=== PATIENT | male | born 1965 | race Caucasian/White ===

== ENCOUNTER 2022-08-05 11:09 | Day surgery (SDC) | payer OTHER, SELFPAY ==
--- NOTE | 2022-08-05 08:44 | W.PM.DSUDISC ---
Discharge Plan Disposition Patient Disposition: [facility] Condition: Good Discharge Details Reason For Visit: Screening colonoscopy Attending Provider: Luis Fernando Leiva Primary Care Provider: None,None Home Meds and New Rx's Prescriptions: Continued propranolol 10 mg tablet 10 mg PO BID pantoprazole 40 mg tablet,delayed release (DR/EC) 40 mg PO DAILY naproxen sodium 220 mg Tablet 220 mg PO DAILY PRN Discharge Instructions Instructions: Colorectal Polyps (DC) Additional Instructions: 1. If tolerated, consume a soft, low fiber diet for 1-2 days. 2[address] Do not drive, drink alcohol, operate machinery, make critical decisions, or do activities that require coordination or balance for 24 hours. 3. Because air was put into your colon during the procedure, expelling air from your rectum (passing gas or farting) is normal. 4. You may not have a bowel movement for 1-3 days because of the colonoscopy prep. This is normal. 5. Go directly to the emergency room if you notice any of the following: Develop chills (warm to touch), or if you have a thermometer and your temperature is above 101 Difficulty breathing or difficultly swallowing Persistent vomiting Severe abdominal pain, other than gas cramps Severe chest pain Black, tarry stools Any bleeding ? exceeding one tablespoon 6. Call your physician if the site where your intravenous was started becomes red, swollen, painful, and warm to touch. 7. Your physician has reviewed your pre-procedure medications. Please continue to take those medications as previously ordered. You will be given specific information/education regarding any changes to your medications before leaving. Activity:: Activity as Tolerated Diet:: As Tolerated Discharge Orders Discharge Orders: Discharge Order (Routine); Ordered 08/05/22 Ordered By: Luis Fernando Leiva DS: Diagnosis Discharge Diagnosis (1) Screening for colon cancer: Status: Acute Asessment and Plan: My office will contact the correctional facility with results of the biospy
--- NOTE | 2022-08-05 08:46 | COLE_ITS ---
Colonoscopy Report Date of procedure: 08/05/22 Pre-op diagnosis general: screening colonoscopy Post-op diagnosis procedure note: other (diverticulosis, colon polyp, rectal polyp) Procedure: Screening colonoscopy Surgeon: Luis Fernando Leiva Anesthesia Type: General:No Airway Estimated blood loss (mL): 10 Pathology: other (Colon polyp at 55 cm, rectal polyp at 15 cm) Complications: None Disposition: same day Prep: Miralax/Dulcolax Procedure Start Time: 14:07 Procedure End Time: 14:28 Retraction Time: 17 Findings: Polyp at 55 cm, polyp at 15 cm Procedure Description: After the induction of monitored anesthetic care, and with the patient in left lateral decubitus position, I began by performing an external anorectal exam.? Perineum and skin were normal, as was the anal verge.? There was no evidence of external hemorrhoids.? Next, I performed a digital rectal exam.? I did not appreciate any abnormal findings.? Next, I advanced a colonoscope into the rectal vault.? I performed retroflexion.? I did not see signs of pathologic internal hemorrhoids.? Using insufflation, I then advanced the colonoscope beyond the rectal folds and into the sigmoid colon before advancing towards the cecum.? The quality of the prep was excellent.? The scope was noted to be in the cecum by identification of the ileocecal valve and appendiceal orifice.? I then began withdrawing the colonoscope using repeated irrigation as necessary for full evaluation of the colonic mucosa. Around 55 cm from the anal verge I identified a 0.5 cm polyp. ?It appeared sessile in character. ?I was able to remove this with a cold forcep. ?I examined the site, and there was minimal bleeding. ?Once this was completed, I continued to withdraw the scope and examin e the remainder of the colonic mucosa.?Once the scope was withdrawn to the level of the rectum, great care was taken to examine portions of the rectal folds.?Around 15 cm from the anal verge I identified a 1.25 centimeter polyp. ?It appeared pedunculated in character. ?I was able to remove this with a hot snare. ?I examined the site, and there was minimal bleeding. ?Once this was completed, I continued to withdraw the scope and examine the remainder of the colonic mucosa. Finally, the scope was withdrawn and the patient was brought to the same-day surgery recovery unit as the anesthetic wore off. ?The findings and instructions were shared with the patient prior to discharge.
[2022-08-05 11:32] VITALS: BP 136/94; PULSE 77; RESP 18; TEMP 36.1; O2SAT 96
[2022-08-05] MEDS: Lactated Ringers 1,000 ML 80 ML IV (12:00)
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
[2022-08-05 13:35] VITALS: BMI 30.7
--- NOTE | 2022-08-05 13:45 | W.PM.HP.N ---
Date of service: 08/05/22 Time of Service: 13:45 Assessment and Plan Assessment and plan (1) Screening for colon cancer: Status: Acute Assessment and plan: Okay to proceed with screening colonoscopy today. History of Present Illness Narrative: 56 y/o male with history of GERD presents for colonoscopy screening pre-op.? He denies a family history of colon cancer. He denies any changes in bowel habits including bloody or black tarry stools, abdominal pain, diarrhea or constipation. Patient describes that he does have concerns regarding the sensation of sitting on a ball, inside his rectum. He states this isn't painful, but is uncomfortable and becomes more so with prolonged sitting.? He states he has been having this sensation since July of 2021.? Rectal exam performed by the correctional facility physician was unremarkable.? He states that he has noted having a wet, gel like substance when wiping, that has a foul odor. He denies constitutional symptoms. Denies use of marijuana or any other recreational or illegal drugs PFSH All Active Problems (Updated 08/05/22 @ 13:46 by Luis Fernando Leiva MD) Screening for colon cancer (Acute) COVID (Acute ~11/11/21) Medical History Alcohol dependence GERD (gastroesophageal reflux disease) Headache Surgical History Hx of foot surgery R foot, nail gun Social History Smoking/Tobacco Use Status: Former Tobacco Use Quit Date: 10/30/18 Smoking risk assessment performed?: Yes Alcohol Intake: former Substance use type: does not use Details: alcohol : 3 years, marijuana: 3 years Additional Social history: [facility] Meds Allergies and Home Medications Allergies Allergy/AdvReac Type Severity Reaction Status Date / Time acetaminophen [From Tylenol] Allergy Intermediate hives Verified 08/05/22 11:37 Home Medications Medication Instructions Recorded Confirmed Type pantoprazole 40 mg tablet,delayed 40 mg PO DAILY 12/16/21 08/05/22 History release propranolol 10 mg tablet 10 mg PO BID 12/16/21 08/05/22 History naproxen sodium 220 mg tablet 220 mg PO DAILY PRN 08/03/22 08/05/22 History Exam Const General: cooperative, healthy appearing and comfortable Orientation: awake and oriented x3 Eyes General: appearance normal, both eyes and all related structures Conjunctivae: conjunctivae normal Sclera: sclerae normal Resp Effort & Inspection: normal respiratory effort and able to speak in complete sentences Auscultation: clear to auscultation bilaterally Cardio Jugular venous pressure: no JVD Rate: regular rate Rhythm: regular rhythm Heart Sounds: S1 normal, S2 normal and no murmurs GI Inspection: non-distended Palpation: soft, no guarding, no hernias and nontender Auscultation: normal bowel sounds Skin General skin exam: normal turgor Neuro General: patient alert, patient awake and patient oriented x3 Cognition: normal cognition Extrem Right lower extremity: no edema Left lower extremity: no edema Results Last Vital Signs Temp 97.0 F L 08/05/22 11:32 Pulse 77 08/05/22 11:32 Resp 18 08/05/22 11:32 BP 136/94 H 08/05/22 11:32 Pulse Ox 96 08/05/22 11:32
--- NOTE | 2022-08-05 14:20 | BOWEL_PTH ---
PATIENT: Saurav Adhikari LOC: [facility] U#:[id number] AGE/SX: 56/M ROOM: RE08/05/[address]: Luis Fernando Leiva MD : 1965 BED: DIS: 08/05/2022 SPEC #: [id number] RECD: 08/05/22 17:13 STATUS: FABRIZIO REQ #: [id number] BRANDIE: 08/05/22 14:[address]: Luis Fernando Leiva DEPT: Surgical Specimen RECD BY: Glenis Gar ENTERED: 08/05/22 17:14 SP TYPE: Bowel OTHR DR: None Tissues: 1 - BIOPSY BOWEL 2 - BIOPSY BOWEL Procedures: GROSS AND MICRO LEVEL 4 Comments: [id number]
[2022-08-05 14:34] VITALS: BP 113/70; PULSE 76; RESP 18; TEMP 36.4; O2SAT 94
--- NOTE | 2022-08-05 14:48 | W.ANESPOSTOP ---
Postoperative Evaluation Date, Time and Location Date Performed: 08/05/22 Time Performed: 14:48 Patient Location: Day Surgery Unit Vital Signs Most Recent Imported Vital Signs: Most Recent Vital Signs Temp Pulse Resp BP Pulse Ox 36.4 C L 76 18 113/70 94 08/05/22 14:34 08/05/22 14:34 08/05/22 14:34 08/05/22 14:34 08/05/22 14:34 Pain Score Most Recent Pain Score: Most Recent Pain Score Pain Level 1 08/05/22 11:32 Assessment Mental Status: Awake (Alert & Oriented to Patient Baseline) Airway and Respiratory Function: Patent airway with normal (patient baseline) respiratory exam Cardiovascular Function: Hemodynamically Stable Hydration Status: Adequately Hydrated Nausea & Vomiting: No Nausea or Vomiting Pain: Pt. Denies Any Pain Peripheral Nerve Block: Patient did not receive a nerve block
[2022-08-05 15:00] VITALS: BP 108/81; PULSE 64; RESP 18; TEMP 36.4; O2SAT 100
== END 2022-08-05 15:32 | disposition home or self-care (01) ==
PROVIDERS: Visit Provider Surgery
PROC: 0DJD8ZZ Inspection of Lower Intestinal Tract, Via Natural or Artificial Opening Endoscopic (ICD-10-PCS; CPT 45378; principal; 2022-08-05 12:30)
DX: Z12.11 Encounter for screening for malignant neoplasm of colon (principal); K63.5 Polyp of colon; K62.1 Rectal polyp
CPT/HCPCS: 45385; 45380; 88305